=== PATIENT | female | born 1975 | race Caucasian/White ===

== ENCOUNTER 2018-02-28 09:54 | Emergency (ER) | payer OTHER, SELFPAY ==
[2018-02-28 10:03] VITALS: BP 115/78; PULSE 63; RESP 18; TEMP 37; O2SAT 100
--- NOTE | 2018-02-28 10:56 | ED.DIZZY ---
HPI - Dizziness General Chief Complaint: Dizziness Stated Complaint: DIZZY,TIRED Time Seen by Provider: 02/28/18 10:28 Source: patient Mode of arrival: ambulatory Limitations: no limitations History of Present Illness HPI Narrative: Patient is a 42-year-old female who presents with dizziness. She said she was driving which she turned a corner and suddenly felt dizzy. She has had some sinus congestion and pressure over the last couple of days no fever or headache. She has not passed out. 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 Dizziness definitely worsens when she turns her head she does feel lightheaded when she sits up. complaint: lightheadedness Onset (ago): minute(s) Timing: sudden onset Related Data Home Medications Medication Instructions Recorded Confirmed sertraline 100 mg PO BEDTIME #0 04/30/16 02/28/18 benzoyl peroxide 1 applic TOPICAL DIRECTED 02/28/18 02/28/18 cephalexin 500 mg PO BID 02/28/18 02/28/18 clindamycin phosphate 1 applic TOPICAL DAILY 02/28/18 02/28/18 fluconazole 150 mg PO QWEEK 02/28/18 02/28/18 minocycline 100 mg PO BID 02/28/18 02/28/18 topiramate 50 mg PO DAILY 02/28/18 02/28/18 Previous Rx's Medication Instructions Recorded albuterol sulfate [Ventolin HFA] 0 puff INH Q4HP PRN #1 ea 11/09/15 meclizine 25 mg PO TID PRN #10 tab 02/28/18 ondansetron 4 mg PO Q6-8H PRN #10 tab 02/28/18 Allergies Allergy/AdvReac Type Severity Reaction Status Date / Time Sulfa (Sulfonamide Allergy Unknown Verified 02/28/18 11:12 Antibiotics) Review of Systems Review of Systems All systems reviewed & are unremarkable except as noted in HPI and below Constitutional Denies chills, Denies fever(s), Denies lethargy and Reports weakness ENT Ears, Nose, Mouth, and Throat: Reports vertigo and Reports dizziness Cardiovascular Denies chest pain, Denies syncope, Denies irregular heart rhythm, Denies lightheadedness, Denies palpitations, Denies dyspnea, Denies dyspnea on exertion and Denies orthopnea Respiratory Denies cough, Denies dyspnea, Denies dyspnea on exertion and Denies wheezing Gastrointestinal Gastrointestinal: Denies abdominal pain, Denies change in bowel habits, Denies diarrhea, Reports nausea and Denies vomiting Musculoskeletal Denies back pain, Denies muscle weakness, Denies numbness and Denies tingling Neurologic Reports vertigo, Reports dizziness, Denies syncope, Denies numbness, Denies tingling and Reports weakness Endocrine Denies palpitations Allergic/Immunologic Denies wheezing PFSH Medical History Depression (Acute) Skin cancer, basal cell (Acute) Social History Smoking Status: Never smoker Exam Initial Vital Signs Initial Vital Signs: Vital Signs Temperature 98.6 F 02/28/18 10:03 Pulse Rate 63 02/28/18 10:03 Respiratory Rate 18 02/28/18 10:03 Blood Pressure 115/78 02/28/18 10:03 Pulse Oximetry 100 02/28/18 10:03 GENERAL: Well-appearing, well-nourished and in no acute distress. HEENT: Head atraumatic,EOMI, pupils reactive, face symmetric, neck supple, no meningeal signs CARDIOVASCULAR: Regular rate and rhythm without murmurs, rubs or gallops. RESPIRATORY: Breath sounds equal bilaterally, no wheezes rales or rhonchi. ABDOMEN: Soft, nontender. Normoactive bowel sounds all 4 quadrants. No guarding or rebound. EXTREMITIES: Normal range of motion, no clubbing or edema. Neurovascularly intact NEUROLOGICAL: Alert and oriented x4.Normal gait and speech. Cranial nerves II through XII grossly intact. Good [id number], good [id number], strength equal bilaterally, no dysarthria or aphasia, sensation in tact to soft touch bilaterally, no visual changes, no facial droop SKIN: Warm, dry, no laceration, no petechiae, no rashes or lesions. Course Orders Ordered: ED Orders 02/28/18 10:01 EKG-12 Lead Stat 02/28/18 11:20 Complete Blood Count AUTO DIFF Stat Comprehensive Metabolic Panel Stat Discontinued Medications Sodium Chloride (Normal Saline 0.9%) 1,000 mls @ 1,000 mls/hr IV CONT DESI Last Infusion: 02/28/18 13:03 Dose: 0 mls/hr Admin: 02/28/18 11:34 Dose: 1,000 mls/hr Meclizine HCl (Antivert) 25 mg PO NOW ONE Stop: 02/28/18 11:09 Last Admin: 02/28/18 11:33 Dose: 25 mg Ondansetron HCl (Zofran) 4 mg IV NOW ONE Stop: 02/28/18 11:09 Last Admin: 02/28/18 11:34 Dose: 4 mg Vital Signs - 8 hr 02/28/18 11:07 02/28/18 11:09 02/28/18 11:12 Pulse Rate 73 68 Respiratory Rate 17 18 Blood Pressure Blood Pressure [Left Arm] 117/75 117/75 Pulse Oximetry 100 98 02/28/18 11:48 02/28/18 13:03 Pulse Rate 58 L 70 Respiratory Rate 16 Blood Pressure 108/78 Blood Pressure [Left Arm] 120/76 Pulse Oximetry 100 100 MDM - Dizziness Lab Data Attestation: I reviewed the patient's lab results. Result diagrams: 02/28/18 11:20 02/28/18 11:20 Lab Results 02/28/18 02/28/18 Range/Units 11:20 11:20 WBC 6.6 (4.5-11.0) X10^3/uL RBC 4.80 (4.0-5.2) X10^6/uL Hgb 12.3 (12.0-16.0) g/dL Hct 37.0 (36-46) % MCV 77.2 L (80-100) fL MCH 25.6 L (26-34) PG MCHC 33.1 (30-36) % RDW 15.1 H (11.6-14.8) % Plt Count 281 (150-400) X10^3/uL Neut % (Auto) 63.8 (50-75) % Lymph % (Auto) 25.6 (25-40) % [place] % (Auto) 7.0 (3-14) % Eos % (Auto) 2.6 (2-4) % Baso % (Auto) 1.0 (0-2) % Neut # (Auto) 4200 (1051-4788) /uL Sodium 143 (137-145) mmol/L Potassium 4.1 (3.4-5.1) mmol/L Chloride 106 (98-107) mmol/L Carbon Dioxide 26 (22-32) mmol/L BUN 12 (7-17) mg/dL Creatinine 0.70 (0.52-1.04) mg/dL Estimated GFR > 60.0 (>60) mL/min BUN/Creatinine Ratio 17.1 (6-22) Glucose 87 (70-100) mg/dL Calcium 9.0 (8.4-10.2) mg/dL Total Bilirubin 0.4 (0.2-1.3) mg/dL AST 27 (14-36) IU/L ALT 27 (9-52) IU/L Alkaline Phosphatase 58 (38-126) U/L Total Protein 7.9 (6.3-8.2) g/dL Albumin 4.6 (3.5-5.0) g/dL Globulin 3.3 (1.7-4.1) g/dL Albumin/Globulin Ratio 1.4 (1.0-2.8) ECG Data Attestation: I personally reviewed and interpreted this ECG as follows: Prior ECG tracings: available for review Interpretation: Normal sinus rhythm rate 61 ST changes no T-wave inversions, better than previous EKG MDM Narrative Medical decision making narrative: Patient overall is feeling better the dizziness has improved significantly she is ambulatory to the restroom without difficulty. Symptoms worse with position consistent with benign paroxysmal positional vertigo. Discharge Plan Departure Patient Disposition: Home Clinical Impression: Benign paroxysmal positional vertigo Discharge Date/Time: 02/28/18 13:03 Interventions: ED Discharge Assessment Last Done: 02/28/18 13:03 Instructions: DI for Benign Paroxysmal Positional Vertigo Activity Restrictions/Additional Instructions: *You have been diagnosed with benign paroxysmal positional vertigo *What to do: Control symptoms, this should stop unlikely to be side effect *Continue to take medications as directed Meclizine every 8 hr if needed for dizziness Zofran every 6-8 hours as needed for nausea vomiting *Follow up with your primary care provider in 2-3 days *Return to ER if you should have persistent dizziness, persistent vomiting or any new, worsening or concerning symptoms Prescriptions: New meclizine 25 mg tablet 25 mg PO TID PRN (Reason: dizziness) Qty: 10 RF: 0 ondansetron 4 mg tablet,disintegrating 4 mg PO Q6-8H PRN (Reason: nausea and vomiting) Qty: 10 RF: 0 No Action albuterol sulfate [Ventolin HFA] 90 MCG/PUFF HFA aerosol inhaler INH Q4HP PRNQty: 1 RF: 0 sertraline 100 MG tablet 100 mg PO BEDTIME Qty: 0 RF: 0 fluconazole 150 mg tablet 150 mg PO QWEEK RF: 0 minocycline 100 mg capsule 100 mg PO BID RF: 0 benzoyl peroxide 10 % gel 1 applic Topical DIRECTED RF: 0 cephalexin 500 mg capsule 500 mg PO BID RF: 0 clindamycin phosphate 1 % lotion 1 applic Topical DAILY RF: 0 topiramate 50 mg tablet 50 mg PO DAILY RF: 0
[2018-02-28 11:07] VITALS: BP 117/75; PULSE 73; O2SAT 100
[2018-02-28 11:09] VITALS: RESP 17
--- NOTE | 2018-02-28 11:10 | PC.NURSE ---
felt head underwater yesterday,, sick last january cold for one week, with coughing. today with sitting position felt weak, dizziness, worsen when head turned to side to side. with nausea, no vomiting. always has sinus preassure, had ear surgery. denies pain.
[2018-02-28 11:12] VITALS: BP 117/75; PULSE 68; RESP 18; O2SAT 98
[2018-02-28] MEDS: MECLIZINE HCL 12.5 MG TABLET 25 MG PO (11:33)
[2018-02-28] MEDS: SODIUM CHLORIDE 0.9% 1,000 ML 1000 ML IV (11:34)
[2018-02-28] MEDS: ONDANSETRON 4 MG/2 ML INJ IV (11:34)
[2018-02-28 11:47] LABS: Add Manual Diff / Slide Review NO; Eosinophils Percent Auto 2.6 % (2-4); Hemoglobin 12.3 g/dL (12.0-16.0); Lymphocytes Percent Auto 25.6 % (25-40); Mean Corpuscular HGB Conc 33.1 % (30-36); Mean Corpuscular Hemoglobin 25.6 PG (26-34); Mean Corpuscular Volume 77.2 fL (80-100); Neutrophils Absolute Auto 4200 /uL (3000-5900); Neutrophils Percent Auto 63.8 % (50-75); Platelet Count 281 X10^3/uL (150-400); Red Cell Distribution Width 15.1 % (11.6-14.8); White Blood Cell Count 6.6 X10^3/uL (4.5-11.0)
[2018-02-28 11:48] VITALS: BP 120/76; PULSE 58; RESP 16; O2SAT 100
[2018-02-28 12:00] LABS: Alanine Aminotransferase 27 IU/L (9-52); Albumin 4.6 g/dL (3.5-5.0); Albumin Globulin Ratio 1.4 (1.0-2.8); Alkaline Phosphatase 58 U/L (38-126); Aspartate Aminotransferase 27 IU/L (14-36); BUN Creatinine Ratio 17.1 (6-22); Bilirubin Total 0.4 mg/dL (0.2-1.3); Blood Urea Nitrogen 12 mg/dL (7-17); Carbon Dioxide 26 mmol/L (22-32); Chloride 106 mmol/L (98-107); Estimated Glomerular Filt Rate > 60.0 mL/min (>60); Globulin 3.3 g/dL (1.7-4.1); Glucose 87 mg/dL (70-100); HEMOLYSIS < 15 (0-50); Potassium 4.1 mmol/L (3.4-5.1); Sodium 143 mmol/L (137-145); Total Protein 7.9 g/dL (6.3-8.2)
[2018-02-28 13:03] VITALS: BP 108/78; PULSE 70; O2SAT 100
== END 2018-02-28 13:03 | disposition home or self-care (01) ==
PROVIDERS: Emergency Provider Emergency Medicine
DX: H81.10 Benign paroxysmal vertigo, unspecified ear (principal)
CPT/HCPCS: 36591; 80053; 85025; 93005; 93010; 96361; 96374; 99283; 99284; J2405

== ENCOUNTER 2019-02-08 16:31 | Emergency (ER) | payer OTHER, SELFPAY ==
[2019-02-08 16:50] VITALS: BP 139/78; PULSE 69; RESP 15; TEMP 36.8; O2SAT 97
--- NOTE | 2019-02-08 16:53 | PC.NURSE ---
Pt has hx of this since she was 14 years old. Her doctor told her they were pvc's.
[2019-02-08 17:38] LABS: Add Manual Diff / Slide Review NO; Basophils Absolute Auto 100 /uL (0-100); Basophils Percent Auto 0.9 % (0-2); Eosinophils Absolute Auto 100 /uL (0-450); Eosinophils Percent Auto 2.1 % (2-4); Lymphocytes Absolute Auto 1900 /uL (1100-4500); Lymphocytes Percent Auto 27.3 % (25-40); Mean Corpuscular HGB Conc 33.4 % (30-36); Mean Corpuscular Hemoglobin 25.9 PG (26-34); Mean Corpuscular Volume 77.6 fL (80-100); Monocytes Absolute Auto 500 /uL (0-900); Monocytes Percent Auto 7.3 % (3-14); Neutrophils Absolute Auto 4300 /uL (1500-7000); Neutrophils Percent Auto 62.4 % (50-75); Platelet Count 247 X10^3/uL (150-400); Red Blood Cell Count 4.25 X10^6/uL (4.0-5.2); Red Cell Distribution Width 14.5 % (11.6-14.8); White Blood Cell Count 6.9 X10^3/uL (4.5-11.0)
[2019-02-08 17:45] LABS: BUN Creatinine Ratio 18.6 (6-22); Blood Urea Nitrogen 13 mg/dL (7-17); Calcium 9.3 mg/dL (8.4-10.2); Carbon Dioxide 24 mmol/L (22-32); Chloride 109 mmol/L (98-107); Creatine Kinase 27 U/L (30-135); Estimated Glomerular Filt Rate > 60.0 mL/min (>60); Glucose 92 mg/dL (70-100); HEMOLYSIS < 15 (0-50); Potassium 4.2 mmol/L (3.4-5.1); Sodium 141 mmol/L (137-145)
[2019-02-08 17:56] LABS: Troponin I < 0.012 ng/mL (0.01-0.034)
[2019-02-08 18:18] VITALS: BP 113/58; PULSE 64; O2SAT 97
[2019-02-08 18:19] LABS: Thyroid Stimulating Hormone 1.08 uIU/mL (0.47-4.68)
--- NOTE | 2019-02-08 18:22 | ED.ARRPALP ---
HPI - Arrhythmia/Palpitations <CINDA Sherman - Last Filed: 02/08/19 18:34> General Chief Complaint: Arrhythmia/Palpitations Stated Complaint: heart skips beats, on going for months Time Seen by Provider: 02/08/19 16:51 Source: patient and family Mode of arrival: Ambulatory Limitations: no limitations History of Present Illness HPI narrative: The patient is a 43-year-old female nonsmoker with history of PVCs who presents with chief complaint of palpitations that has been ongoing for the past several months. She states that she has had issues with PVC since she was 14 years old. She states that she has been evaluated for this many times, is concerned about her potassium level, vitamin-D level etc she denies any chest pain or shortness of breath. She states that she is very tired of having PVCs and finds it quite exhausting.She states that she has had were PVCs over the past several months. She states she is sick of them so she came to the emergency department today. She has not follow up with primary care provider yet. Related Data Home Medications Medication Instructions Recorded Confirmed sertraline 100 mg PO BEDTIME #0 04/30/16 02/28/18 benzoyl peroxide 1 applic TOPICAL DIRECTED 02/28/18 02/28/18 cephalexin 500 mg PO BID 02/28/18 02/28/18 clindamycin phosphate 1 applic TOPICAL DAILY 02/28/18 02/28/18 fluconazole 150 mg PO QWEEK 02/28/18 02/28/18 minocycline 100 mg PO BID 02/28/18 02/28/18 topiramate 50 mg PO DAILY 02/28/18 02/28/18 Previous Rx's Medication Instructions Recorded albuterol sulfate [Ventolin HFA] 0 puff INH Q4HP PRN #1 ea 11/09/15 meclizine 25 mg PO TID PRN #10 tab 02/28/18 ondansetron 4 mg PO Q6-8H PRN #10 tab 02/28/18 Allergies Allergy/AdvReac Type Severity Reaction Status Date / Time Sulfa (Sulfonamide Allergy Unknown Verified 02/08/19 16:50 Antibiotics) Review of Systems <CINDA Sherman - Last Filed: 02/08/19 18:34> Review of Systems Narrative: GENERAL: Denies chills, fatigue, malaise, fever, sweats. HEENT: Denies sinus pain, ear pain, sore throat, difficulty swallowing, dizziness. RESPIRATORY: Denies dyspnea, cough, wheezing, hemoptysis, sputum. CARDIOVASCULAR: See HPI GASTROINTESTINAL: Denies nausea, vomiting, abdominal pain, diarrhea, constipation, melena. : Denies dysuria, frequency, incontinence, hematuria, urinary retention. MUSCULOSKELETAL: denies weakness, joint pain, or bony pain SKIN: Denies rash, skin lesions, or other NEUROLOGIC: Denies weakness, headache, numbness, change in speech, confusion, seizures, incoordination. PSYCHIATRIC: No concerning psychosocial issues. 12 point review of systems is negative except for those stated above Patient History <CINDA Sherman - Last Filed: 02/08/19 18:34> Medical History (Updated 02/08/19 @ 18:30 by CINDA Sherman) Depression (Acute) Skin cancer, basal cell (Acute) Tubal ligation evaluation (Acute) Social History Smoking Status: Never smoker alcohol intake frequency: a few times a week Substance Use Type: does not use Exam <CINDA Sherman - Last Filed: 02/08/19 18:34> Narrative Exam Narrative: GENERAL: This is a well-nourished, well-developed patient, in no acute distress HEAD: Atraumatic. Normocephalic. No temporal or scalp tenderness. EYES: Pupils equal round and reactive. Extraocular motions intact. No scleral icterus. No injection or drainage. ENT: Nose without bleeding, purulent drainage or septal hematoma. Throat without erythema, tonsillar hypertrophy or exudate. Uvula midline. Airway patent. NECK: Trachea midline. No JVD or lymphadenopathy. Supple, nontender, no meningeal signs. CARDIOVASCULAR: Regular rate and rhythm without murmurs, gallops, or rubs. RESPIRATORY: Clear to auscultation. Breath sounds equal bilaterally. No wheezes, rales, or rhonchi. No cough. No increased respiratory effort. No accessory muscle use. GASTROINTESTINAL: Abdomen soft, non-tender, nondistended. No hepato-splenomegaly, or palpable masses. No guarding. EXTREMITIES: No clubbing, cyanosis, or edema. No joint tenderness, effusion, or edema noted. BACK: Nontender without deformity or crepitance. No flank tenderness. NEURO: AOx3. SKIN: No rash or erythema. Initial Vital Signs Initial Vital Signs: Vital Signs Temperature 98.2 F 02/08/19 16:50 Pulse Rate 69 02/08/19 16:50 Respiratory Rate 15 02/08/19 16:50 Blood Pressure 139/78 02/08/19 16:50 Pulse Oximetry 97 02/08/19 16:50 <Hemant Combs DO - Last Filed: 02/09/19 07:42> Initial Vital Signs Initial Vital Signs: Vital Signs Temperature 98.2 F 02/08/19 16:50 Pulse Rate 69 02/08/19 16:50 Respiratory Rate 15 02/08/19 16:50 Blood Pressure 139/78 02/08/19 16:50 Pulse Oximetry 97 02/08/19 16:50 Course <CINDA Sherman - Last Filed: 02/08/19 18:34> Orders Ordered: ED Orders 02/08/19 16:53 EKG-12 Lead Stat 02/08/19 17:20 Basic Metabolic Panel Stat Complete Blood Count AUTO DIFF Stat Magnesium Stat Thyroid Stimulating Hormone Stat Troponin & CK Cardiac Panel Stat Vital Signs Vital signs: Vital Signs - 8 hr 02/08/19 16:50 02/08/19 18:18 Temperature 98.2 F Pulse Rate 69 64 Respiratory Rate 15 Blood Pressure 139/78 Blood Pressure [Right Arm] 113/58 L Pulse Oximetry 97 97 <Hemant Combs DO - Last Filed: 02/09/19 07:42> Orders Ordered: ED Orders 02/08/19 16:53 EKG-12 Lead Stat 02/08/19 17:20 Basic Metabolic Panel Stat Complete Blood Count AUTO DIFF Stat Magnesium Stat Thyroid Stimulating Hormone Stat Troponin & CK Cardiac Panel Stat Vital Signs Vital signs: Vital Signs - 8 hr 02/08/19 16:50 02/08/19 18:18 Temperature 98.2 F Pulse Rate 69 64 Respiratory Rate 15 Blood Pressure 139/78 Blood Pressure [Right Arm] 113/58 L Pulse Oximetry 97 97 MDM - Arrhythmia/Palpitations <CINDA Sherman - Last Filed: 02/08/19 18:34> Lab Data Result diagrams: 02/08/19 17:20 02/08/19 17:20 Labs: Lab Results 02/08/19 02/08/19 02/08/19 Range/Units 17:20 17:20 17:20 WBC 6.9 (4.5-11.0) X10^3/uL RBC 4.25 (4.0-5.2) X10^6/uL Hgb 11.0 L (12.0-16.0) g/dL Hct 33.0 L (36-46) % MCV 77.6 L (80-100) fL MCH 25.9 L (26-34) PG MCHC 33.4 (30-36) % RDW 14.5 (11.6-14.8) % Plt Count 247 (150-400) X10^3/uL Neut % (Auto) 62.4 (50-75) % Lymph % (Auto) 27.3 (25-40) % [place] % (Auto) 7.3 (3-14) % Eos % (Auto) 2.1 (2-4) % Baso % (Auto) 0.9 (0-2) % Neut # (Auto) 4300 (0819-7041) /uL Lymph # (Auto) 1900 (1369-6763) /uL [place] # (Auto) 500 (0-900) /uL Eos # (Auto) 100 (0-450) /uL Baso # (Auto) 100 (0-100) /uL Sodium 141 (137-145) mmol/L Potassium 4.2 (3.4-5.1) mmol/L Chloride 109 H (98-107) mmol/L Carbon Dioxide 24 (22-32) mmol/L BUN 13 (7-17) mg/dL Creatinine 0.70 (0.52-1.04) mg/dL Estimated GFR > 60.0 (>60) mL/min BUN/Creatinine Ratio 18.6 (6-22) Glucose 92 (70-100) mg/dL Calcium 9.3 (8.4-10.2) mg/dL Magnesium 2.0 (1.6-2.3) mg/dL Total Creatine Kinase 27 L (30-135) U/L CK-MB (CK-2) TNP CK-MB (CK-2) Rel Index TNP Troponin I < 0.012 (0.01-0.034) ng/mL TSH 1.08 (0.47-4.68) uIU/mL Point of Care Testing Test Results Negative ECG Data Attestation: I personally reviewed and interpreted this ECG as follows: Interpretation: Ventricular rate 71. P.r. duration 174. QRS 105. Single PVC noted. No ST elevation or depression noted. MDM Narrative Medical decision making narrative: The patient is a 43-year-old female with history of PVCs for to case who presents with a chief complaint of worsening DP sees over the past several months. She denies any chest pain, is neurovascularly intact, is overall benign labs. She has grossly normal, CBC CMP magnesium TSH. I discussed at length the importance of follow-up with primary care provider, further testing, possibility of Holter monitor etc. Patient states understanding has no questions or concerns upon discharge. She states understanding return precautions as well as follow-up care. <Hemant Combs, DO - Last Filed: 02/09/19 07:42> Lab Data Labs: Lab Results 02/08/19 02/08/19 02/08/19 Range/Units 17:20 17:20 17:20 WBC 6.9 (4.5-11.0) X10^3/uL RBC 4.25 (4.0-5.2) X10^6/uL Hgb 11.0 L (12.0-16.0) g/dL Hct 33.0 L (36-46) % MCV 77.6 L (80-100) fL MCH 25.9 L (26-34) PG MCHC 33.4 (30-36) % RDW 14.5 (11.6-14.8) % Plt Count 247 (150-400) X10^3/uL Neut % (Auto) 62.4 (50-75) % Lymph % (Auto) 27.3 (25-40) % [place] % (Auto) 7.3 (3-14) % Eos % (Auto) 2.1 (2-4) % Baso % (Auto) 0.9 (0-2) % Neut # (Auto) 4300 (3122-9804) /uL Lymph # (Auto) 1900 (2632-7584) /uL [place] # (Auto) 500 (0-900) /uL Eos # (Auto) 100 (0-450) /uL Baso # (Auto) 100 (0-100) /uL Sodium 141 (137-145) mmol/L Potassium 4.2 (3.4-5.1) mmol/L Chloride 109 H (98-107) mmol/L Carbon Dioxide 24 (22-32) mmol/L BUN 13 (7-17) mg/dL Creatinine 0.70 (0.52-1.04) mg/dL Estimated GFR > 60.0 (>60) mL/min BUN/Creatinine Ratio 18.6 (6-22) Glucose 92 (70-100) mg/dL Calcium 9.3 (8.4-10.2) mg/dL Magnesium 2.0 (1.6-2.3) mg/dL Total Creatine Kinase 27 L (30-135) U/L CK-MB (CK-2) TNP CK-MB (CK-2) Rel Index TNP Troponin I < 0.012 (0.01-0.034) ng/mL TSH 1.08 (0.47-4.68) uIU/mL Point of Care Testing Test Results Negative Discharge Plan Departure Patient Disposition: Home Clinical Impression: Palpitations Discharge Date/Time: 02/08/19 18:34 Instructions: DI for Arrhythmias, DI for Palpitations Activity Restrictions/Additional Instructions: As discussed, please follow up with primary care provider in the next few days. You need further outpatient management of lab work likely. Your lab work is overall normal for you, shows slight anemia. Your sodium potassium and magnesium are all normal. Your TSH is in the normal range. Please come back to emergency department for any acute concerns such as chest pain, shortness of breath etc. Prescriptions: No Action albuterol sulfate [Ventolin HFA] 90 MCG/PUFF HFA aerosol inhaler 0 puff INH Q4HP PRNQty: 1 RF: 0 sertraline 100 MG tablet 100 mg PO BEDTIME Qty: 0 RF: 0 fluconazole 150 mg tablet 150 mg PO QWEEK RF: 0 minocycline 100 mg capsule 100 mg PO BID RF: 0 benzoyl peroxide 10 % gel 1 applic Topical DIRECTED RF: 0 cephalexin 500 mg capsule 500 mg PO BID RF: 0 clindamycin phosphate 1 % lotion 1 applic Topical DAILY RF: 0 topiramate 50 mg tablet 50 mg PO DAILY RF: 0 meclizine 25 mg tablet 25 mg PO TID PRN (Reason: dizziness) Qty: 10 RF: 0 ondansetron 4 mg tablet,disintegrating 4 mg PO Q6-8H PRN (Reason: nausea and vomiting) Qty: 10 RF: 0 Referrals: Marilyn Robledo DO [Non-Staff] -
[2019-02-08 18:34] VITALS: BP 113/58; PULSE 62; RESP 19; O2SAT 97
== END 2019-02-08 18:34 | disposition home or self-care (01) ==
PROVIDERS: Emergency Provider Nurse Practitioner Family
DX: R00.2 Palpitations (principal)
CPT/HCPCS: 36415; 80048; 81025; 82550; 83735; 84443; 84484; 85025; 93005; 99282; 99284

== ENCOUNTER 2019-05-20 18:08 | Emergency (ER) | payer OTHER, SELFPAY ==
[2019-05-20 18:16] VITALS: BP 126/65; PULSE 111; RESP 16; TEMP 39.4; O2SAT 100; BMI 30.9
--- NOTE | 2019-05-20 18:44 | DI.RAD.S_ITS ---
PROCEDURE: XR CHEST 1V INDICATIONS: Fever and cough eval for pneumonia TECHNIQUE: One view of the chest was acquired. COMPARISON: [facility], , CHEST 2 VIEW, 05/25/2016, 18:02. FINDINGS: Surgical changes and devices: None. Lungs and pleura: Lungs are clear. No pleural effusions or pneumothorax. Mediastinum: Mediastinal contours appear normal. Heart size is normal. Bones and chest wall: No suspicious bony lesions. Overlying soft tissues appear unremarkable. IMPRESSION: No acute cardiopulmonary abnormalities or focal airspace disease. Dictated by: Amadou Sunshine M.D. on 05/20/2019 at 20:29 Approved by: Amadou Sunshine M.D. on 05/20/2019 at 20:31
--- NOTE | 2019-05-20 19:41 | ED_ITS ---
HPI - General Adult General Chief complaint: Fever Stated complaint: COUGH FEVER 103.5 Time Seen by Provider: 05/20/19 18:43 Source: patient Mode of arrival: Ambulatory Limitations: no limitations History of Present Illness HPI narrative: 44-year-old female has had fever and a cough that headache for the past couple days. Went to the walk-in clinic yesterday. She states she was tested for the flu. She states she was told was negative. I do not have these results to review. Returns today for continued symptoms. Related Data Home Medications Medication Instructions Recorded Confirmed sertraline 100 mg PO BEDTIME #0 04/30/16 05/20/19 topiramate 50 mg PO DAILY 02/28/18 05/20/19 Vitamin D3 1 cap PO PRN PRN 05/20/19 05/20/19 Allergies Allergy/AdvReac Type Severity Reaction Status Date / Time Sulfa (Sulfonamide Allergy Unknown Verified 05/20/19 18:16 Antibiotics) Review of Systems Constitutional Constitutional: Reports fever(s) ENT Ears, Nose, Mouth, and Throat: Reports sore throat Cardiovascular Cardiovascular: Denies chest pain Respiratory Respiratory: Reports cough Musculoskeletal Musculoskeletal: Denies myalgias and Denies arthralgias Integumentary/Breasts Skin/Breast: Denies lesions and Denies rash Neurologic Neurologic: Denies behavioral changes Psychiatric Psychiatric: Denies behavioral changes Hematologic/Lymphatic Hematologic/Lymphatic: Denies easy bleeding and Denies easy bruising Patient History Medical History Depression (Acute) Skin cancer, basal cell (Acute) Tubal ligation evaluation (Acute) Social History Smoking Status: Never smoker Smoking Status: Never smoker alcohol intake frequency: holidays/special occasions only Substance Use Type: does not use Exam Initial Vital Signs Initial Vital Signs: Vital Signs Temperature 102.9 F H 05/20/19 18:16 Pulse Rate 111 H 05/20/19 18:16 Respiratory Rate 16 05/20/19 18:16 Blood Pressure 126/65 05/20/19 18:16 Pulse Oximetry 100 05/20/19 18:16 Const General: cooperative and healthy appearing HENMT Mouth: moist mucous membranes Throat: posterior oropharynx normal Resp Effort & Inspection: normal respiratory effort Auscultation: clear to auscultation bilaterally Cardio Rate: tachycardic Rhythm: regular rhythm Skin Lesions: no lesions Rashes: no rashes Neuro General: alert and awake Cognition: normal cognition Speech: speech normal Extrem General: normal to inspection and capillary refill normal Psych Appearance: grossly normal and well kempt Course Orders Ordered: ED Orders 05/20/19 18:44 XR chest 1V Stat Discontinued Medications Acetaminophen (Tylenol) 975 mg PO NOW ONE Stop: 05/20/19 19:42 Last Admin: 05/20/19 19:56 Dose: 975 mg Documented by: ARIS Vital Signs Vital signs: Vital Signs - 8 hr 05/20/19 20:45 05/20/19 20:46 Temperature 102 F H 102 F H Pulse Rate 101 H Respiratory Rate 16 Blood Pressure 106/60 Pulse Oximetry 96 Medical Decision Making Lab Data Lab results reviewed: Yes I reviewed the patient's lab results. Imaging Data Chest x-ray: Radiologist's Impression: [address] [address] XRay Report Signed Patient: Donya Sanchez [facility]#: [id number] : 1975Acct:[id number] Age/Sex: 44 / FDate of Service: 05/20/19 Loc: ED Accession Number: [id number] Procedure: XR chest 1V Ordering Provider: Bartolo Colón D.O. PROCEDURE: XR CHEST 1V INDICATIONS: Fever and cough eval for pneumonia TECHNIQUE: One view of the chest was acquired. COMPARISON: [facility], CHEST 2 VIEW, 05/25/2016, 18:02. FINDINGS: Surgical changes and devices: None. Lungs and pleura: Lungs are clear. No pleural effusions or pneumothorax. Mediastinum: Mediastinal contours appear normal. Heart size is normal. Bones and chest wall: No suspicious bony lesions. Overlying soft tissues appear unremarkable. IMPRESSION: No acute cardiopulmonary abnormalities or focal airspace disease. Dictated by: Amadou Sunhsine M.D. on 05/20/2019 at 20:29 Approved by: Amadou Sunshine M.D. on 05/20/2019 at 20:31 MDM Narrative Medical decision making narrative: Patient has a relatively benign exam. Chest x-ray is negative. Had a negative flu yesterday. Does have a fever today. Nontoxic. No indication for antibiotics. Hold on further workup. She was given return precautions and follow-up instructions. She expressed understanding and agreement. Discharge Plan Departure Patient Disposition: Home Clinical Impression: Fever Qualifiers: Fever type: unspecified Qualified Code(s): R50.9 - Fever, unspecified Discharge Date/Time: 05/20/19 20:47 Instructions: DI for Fever (Symptom) -- Adult Activity Restrictions/Additional Instructions: You can take Tylenol/acetaminophen and/or Motrin/ibuprofen as directed for fevers. Contact her primary provider for follow-up. Return to the emergency department for any new or worsening symptoms Prescriptions: No Action sertraline 100 MG tablet 100 mg PO BEDTIME Qty: 0 RF: 0 Vitamin D3 1 cap PO PRN PRN (Reason: as directed) RF: 0 topiramate 50 mg tablet 50 mg PO DAILY RF: 0
[2019-05-20] MEDS: ACETAMINOPHEN 325 MG TABLET 975 MG PO (19:56)
[2019-05-20 20:45] VITALS: TEMP 38.8
[2019-05-20 20:46] VITALS: BP 106/60; PULSE 101; RESP 16; TEMP 38.8; O2SAT 96
== END 2019-05-20 20:47 | disposition home or self-care (01) ==
PROVIDERS: Emergency Provider Emergency Medicine
DX: R50.9 Fever, unspecified (principal)
CPT/HCPCS: 71045; 99283

== ENCOUNTER → 2020-08-20 08:54 | Outpatient (CLI) | payer OTHER, SELFPAY ==
--- NOTE | 2020-08-20 | DI.US.S_ITS ---
LIMITED ULTRASOUND OF RIGHT BREAST: 08/20/2020 CLINICAL: Focal right breast pain. Comparison is made to exams dated: 08/20/2020 mammogram - [facility] and 08/14/2017 mammogram - [facility]. Real-time ultrasound of the right breast 9 o'clock region was performed. Oliva scale images of the real-time examination were reviewed. No significant abnormalities were seen sonographically in the right breast in the region of pain. IMPRESSION: NEGATIVE There is no sonographic evidence of malignancy. Exam findings were conveyed to the patient. Patient is advised to monitor for significant change. Clinical follow-up as needed. A 1 year screening mammogram is recommended. This exam was interpreted at Station ID: [id number]. Electronically Signed By: Jim Ulloa M.D. slc/:08/20/2020 10:18:36 letter sent: Normal Exam Ultrasound BI-RADS: 1 Negative
--- NOTE | 2020-08-20 | DI.MG.S_ITS ---
BILATERAL DIGITAL DIAGNOSTIC MAMMOGRAM 3D/2D: 08/20/2020 CLINICAL: Mastodynia. Comparison is made to exam dated: 08/14/2017 mammogram - [facility]. The tissue of both breasts is heterogeneously dense. This may lower the sensitivity of mammography. No significant masses, calcifications, or other findings are seen in either breast. IMPRESSION: INCOMPLETE: NEEDS ADDITIONAL IMAGING EVALUATION No mammographic evidence of malignancy. A targeted ultrasound of the focal right breast pain is recommended and will immediately follow. This exam was interpreted at Station ID: [id number]. NOTE: For mammograms, a report in lay terms will be sent to the patient. Approximately 15% of breast malignancies will not be visualized mammographically. In the management of a palpable breast mass, a negative mammogram must not discourage biopsy of a clinically suspicious lesion. Electronically Signed By: Jim Ulloa M.D. slc/:08/20/2020 09:35:55 ACR BI-RADS Category 0: Incomplete [id number]
== END ==
PROVIDERS: PCP Family Medicine; Referring Provider Family Medicine; Visit Provider Family Medicine
DX: N64.4 Mastodynia (principal)
CPT/HCPCS: 76642; 77066; G0279